=== PATIENT | male | born 1940 | race African-American/Black ===

== ENCOUNTER 2022-03-23 13:22 | Inpatient (IN) | payer OTHER ==
[~2022-03-23] VITALS: Ht 175.3 cm; Wt 55.6 kg
[2022-03-23 15:48] LABS: HEMATOCRIT. 38.3 % (42.0-52.0); MEAN CORPUSCULAR HEMOGLOBIN 29.9 pg (28.0-32.0); MEAN CORPUSCULAR VOLUME 88.1 fL (80.0-94.0); MEAN PLATELET VOLUME 8.4 fl (7.4-10.4); PLATELET 114 x1000/uL (130-400); RED BLOOD CELL COUNT 4.34 mill/uL (4.7-6.1); RED CELL DISTRIBUTION WIDTH 14.1 % (11.6-14.6)
[2022-03-23 15:53] LABS: CHLORIDE 98 mEq/L (98-107)
[2022-03-23 18:20] LABS: PLATELET ESTIMATE DECREASED
[2022-03-23] MEDS ORDERED: ONDANSETRON HCL 4MG/2ML INJ IV PRN (20:45)
[2022-03-23] MEDS ORDERED: MAGNESIUM/ALUMINUM HYDROXIDE/SIMETHICONE 30ML UDC PO PRN (20:45)
[2022-03-23] MEDS ORDERED: ZOLPIDEM TARTRATE 5MG TABLET PO PRN (20:45)
[2022-03-23] MEDS ORDERED: DIPHENHYDRAMINE 50MG/ML VIAL IV PRN (20:45)
[2022-03-23] MEDS ORDERED: CLONIDINE 0.1MG TABLET PO PRN (20:45)
[2022-03-23] MEDS ORDERED: ACETAMINOPHEN 325MG TABLET PO PRN ×2 (20:45)
[2022-03-23] MEDS: SODIUM CHLORIDE 0.9% INJ 3ML FLUSH IVF SCH (22:00)
[2022-03-23 23:43] VITALS: BP 106/53
[2022-03-24] VITALS (10 sets, daily range): BP systolic 96–137; BP diastolic 51–73
[2022-03-24] MEDS: SODIUM CHLORIDE 0.9% INJ 3ML FLUSH IVF SCH ×3 (05:57→21:08)
[2022-03-24] MEDS: TAMSULOSIN HCL 0.4MG SR CAPSULE PO SCH (08:44)
[2022-03-24 12:41] LABS: *AMPHETAMINES SCREEN URINE NEGATIVE (NEGATIVE); *BARBITURATES SCREEN URINE NEGATIVE (NEGATIVE); *BENZODIAZEPINES SCREEN URINE NEGATIVE (NEGATIVE); *COCAINE SCREEN URINE NEGATIVE (NEGATIVE); CANNABINOID URINE SCREEN PRESUMTIVE POSITIVE (NEGATIVE); METHADONE URINE SCREEN NEGATIVE (NEGATIVE); OPIATES URINE SCREEN NEGATIVE (NEGATIVE); PHENCYCLIDINE URINE SCREEN NEGATIVE (NEGATIVE)
[2022-03-24 16:01] LABS: INR 1.2; PROTHROMBIN TIME 12.4 sec (9.6-11.0)
[2022-03-24] MEDS: ENOXAPARIN 60MG/0.6ML SYR SUBCUT SCH (17:28)
[2022-03-24] MEDS ORDERED: ENOXAPARIN 30MG/0.3ML SYR SUBCUT SCH (21:00)
[2022-03-25] VITALS (11 sets, daily range): BP systolic 98–128; BP diastolic 25–69
[2022-03-25] MEDS: SODIUM CHLORIDE 0.9% INJ 3ML FLUSH IVF SCH ×3 (06:00→21:49)
[2022-03-25] MEDS: ENOXAPARIN 60MG/0.6ML SYR SUBCUT SCH ×2 (06:03→18:29)
[2022-03-25 06:11] LABS: HEMATOCRIT. 43.5 % (42.0-52.0); HEMOGLOBIN. 14.7 g/dL (14.0-18.0); MEAN CORPUSCULAR HEMOGLOBIN 29.8 pg (28.0-32.0); MEAN CORPUSCULAR VOLUME 88.2 fL (80.0-94.0); MEAN PLATELET VOLUME 8.1 fl (7.4-10.4); PLATELET 127 x1000/uL (130-400); RED BLOOD CELL COUNT 4.94 mill/uL (4.7-6.1); RED CELL DISTRIBUTION WIDTH 14.1 % (11.6-14.6)
[2022-03-25 08:27] LABS: CHLORIDE 99 mEq/L (98-107)
[2022-03-25] MEDS: TAMSULOSIN HCL 0.4MG SR CAPSULE PO SCH (08:36)
[2022-03-25] MEDS ORDERED: APIX2.5T MT (11:53)
[2022-03-25 12:45] LABS: PLATELET ESTIMATE NORMAL
[2022-03-25 13:48] LABS: T4 FREE 1.64 ng/dL (0.76-1.46)
[2022-03-26] VITALS: BP 100/59
[2022-03-26 04:00] VITALS: BP 100/57
[2022-03-26] MEDS: ENOXAPARIN 60MG/0.6ML SYR SUBCUT SCH ×2 (06:22→17:36)
[2022-03-26] MEDS: SODIUM CHLORIDE 0.9% INJ 3ML FLUSH IVF SCH ×3 (06:23→22:00)
[2022-03-26 08:00] VITALS: BP 112/71
[2022-03-26] MEDS: TAMSULOSIN HCL 0.4MG SR CAPSULE PO SCH (08:22)
[2022-03-26 12:00] VITALS: BP 116/56
[2022-03-26 16:00] VITALS: BP 115/71
[2022-03-26 20:00] VITALS: BP 121/66
[2022-03-27] VITALS (20 sets, daily range): BP systolic 85–114; BP diastolic 37–67
[2022-03-27] MEDS: SODIUM CHLORIDE 0.9% INJ 3ML FLUSH IVF SCH ×3 (05:47→22:31)
[2022-03-27] MEDS: TAMSULOSIN HCL 0.4MG SR CAPSULE PO SCH (09:00)
[2022-03-27 12:08] LABS: HEMATOCRIT. 44.2 % (42.0-52.0); HEMOGLOBIN. 14.9 g/dL (14.0-18.0); MEAN CORPUSCULAR HEMOGLOBIN 29.8 pg (28.0-32.0); MEAN CORPUSCULAR VOLUME 88.9 fL (80.0-94.0); MEAN PLATELET VOLUME 8.5 fl (7.4-10.4); PLATELET 128 x1000/uL (130-400); RED BLOOD CELL COUNT 4.98 mill/uL (4.7-6.1)
[2022-03-27] MEDS ORDERED: IODIXANOL 320MG/ML 100 ML BOTTLE IV ONE (12:25)
[2022-03-27] MEDS ORDERED: ASPIRIN/SOD BICARB/CITRIC ACID 324MG TAB EFF ONE (12:26)
[2022-03-27] MEDS ORDERED: LIDOCAINE HCL/PF 1% 10 MG/ML 5ML VIAL ONE (12:26)
[2022-03-27 13:18] LABS: PLATELET ESTIMATE SLIGHTLY DECREASED
[2022-03-27] MEDS ORDERED: FENTANYL CITRATE/PF 50MCG/ML 2ML VIAL ONE (13:19)
[2022-03-27] MEDS ORDERED: HEPARIN 1000 UNITS/ML 10ML ONE (13:19)
[2022-03-27] MEDS ORDERED: MIDAZOLAM HCL 2 MG/2 ML VIAL ONE (13:20)
[2022-03-27 13:57] LABS: CHLORIDE 104 mEq/L (98-107)
[2022-03-27] MEDS ORDERED: ONDANSETRON HCL 4MG/2ML INJ IV PRN (14:00)
[2022-03-27] MEDS ORDERED: ATROPINE SULFATE 1MG/10ML SYR IV PRN (14:00)
[2022-03-27] MEDS ORDERED: MORPHINE SULFATE 2 MG/ML CPJ (NOT FOR IM USE) IV PRN (14:00)
[2022-03-27] MEDS ORDERED: ACETAMINOPHEN 325MG TABLET PO PRN (14:00)
[2022-03-27] MEDS ORDERED: SODIUM CHLORIDE 0.45% 500 ML IV ONE (14:30)
[2022-03-28] VITALS (15 sets, daily range): BP systolic 91–147; BP diastolic 35–76
[2022-03-28 06:02] LABS: HEMATOCRIT. 41.9 % (42.0-52.0); HEMOGLOBIN. 14.1 g/dL (14.0-18.0); MEAN CORPUSCULAR HEMOGLOBIN 29.7 pg (28.0-32.0); MEAN CORPUSCULAR VOLUME 88.4 fL (80.0-94.0); MEAN PLATELET VOLUME 8.1 fl (7.4-10.4); PLATELET 132 x1000/uL (130-400); RED BLOOD CELL COUNT 4.75 mill/uL (4.7-6.1); RED CELL DISTRIBUTION WIDTH 13.9 % (11.6-14.6)
[2022-03-28] MEDS: SODIUM CHLORIDE 0.9% INJ 3ML FLUSH IVF SCH ×3 (06:15→22:34)
[2022-03-28 07:35] LABS: PLATELET ESTIMATE NORMAL
[2022-03-28] MEDS ORDERED: GENTAMICIN SULF 40MG/ML 2ML VIAL ONE (07:52)
[2022-03-28] MEDS ORDERED: IODIXANOL 320MG/ML 100 ML BOTTLE IV ONE (07:54)
[2022-03-28] MEDS ORDERED: LIDOCAINE HCL 1% 20ML VIAL (Pyxis) INJ ONE (08:03)
[2022-03-28] MEDS ORDERED: MIDAZOLAM HCL 2 MG/2 ML VIAL ONE (08:31)
[2022-03-28] MEDS ORDERED: PROPOFOL 200MG/20ML VIAL IV ONE (08:37)
[2022-03-28] MEDS ORDERED: DEXAMETHASONE 4MG/ML 1ML VIAL ONE (08:58)
[2022-03-28] MEDS ORDERED: FENTANYL CITRATE/PF 50MCG/ML 2ML VIAL ONE (08:58)
[2022-03-28] MEDS ORDERED: ONDANSETRON HCL 4MG/2ML INJ ONE (08:58)
[2022-03-28] MEDS ORDERED: SUCCINYLCHOLINE CHLORIDE 200MG/10ML IV ONE (08:59)
[2022-03-28] MEDS ORDERED: HYDROCODONE/ACETAMINOPHEN 5/325MG TABLET PO PRN (10:00)
[2022-03-28 10:51] LABS: CHLORIDE 102 mEq/L (98-107)
[2022-03-28] MEDS: TAMSULOSIN HCL 0.4MG SR CAPSULE PO SCH (11:58)
[2022-03-28] MEDS: APIXABAN 2.5 MG TABLET PO SCH (17:42)
[2022-03-28] MEDS: CEFAZOLIN 1000MG PREMIX 50 ML IV SCH (17:43)
[2022-03-29] VITALS: BP 105/62
[2022-03-29] MEDS: CEFAZOLIN 1000MG PREMIX 50 ML IV SCH (01:51)
[2022-03-29 04:00] VITALS: BP 104/59
[2022-03-29] MEDS: SODIUM CHLORIDE 0.9% INJ 3ML FLUSH IVF SCH (06:39)
[2022-03-29 07:41] LABS: BASOPHILS % 0.5 % (0.0-2.0); EOSINOPHILS % 0.3 % (0.0-5.0); HEMATOCRIT. 39.9 % (42.0-52.0); HEMOGLOBIN. 13.4 g/dL (14.0-18.0); MEAN CORPUSCULAR HEMOGLOBIN 29.6 pg (28.0-32.0); MEAN CORPUSCULAR VOLUME 87.8 fL (80.0-94.0); MEAN PLATELET VOLUME 7.9 fl (7.4-10.4); MONOCYTES % 13.9 % (2.0-8.0); NEUTROPHILS % 72.3 % (40.0-76.0); PLATELET 124 x1000/uL (130-400); RED BLOOD CELL COUNT 4.54 mill/uL (4.7-6.1); RED CELL DISTRIBUTION WIDTH 13.8 % (11.6-14.6)
[2022-03-29 08:00] VITALS: BP 99/56
[2022-03-29 09:03] LABS: CHLORIDE 101 mEq/L (98-107)
[2022-03-29] MEDS: TAMSULOSIN HCL 0.4MG SR CAPSULE PO SCH (09:55)
[2022-03-29] MEDS: APIXABAN 2.5 MG TABLET PO SCH (09:56)
[2022-03-29 11:36] VITALS: BP 98/60
[2022-03-29 12:00] VITALS: BP 105/58
[2022-03-29] MEDS ORDERED: NALOXONE HCL 0.4MG/ML VIAL IV PRN (15:45)
== END 2022-03-29 14:20 | disposition home health service (06) | DRG 224 ==
LOC: ER 14:21 → EDBEDREQ 17:42 → 3WST 18:22 → EDBEDREQ 18:23 → ENRESERV 18:27 → 3WST 03-26 08:45
PROVIDERS: ADMIT Internal Medicine; ATTEND Internal Medicine
PROC: 4A023N7 Measurement of Cardiac Sampling and Pressure, Left Heart, Percutaneous Approach (ICD-10-PCS; principal; 2022-03-27)
PROC: B2111ZZ Fluoroscopy of Multiple Coronary Arteries using Low Osmolar Contrast (ICD-10-PCS; 2022-03-27)
PROC: B2151ZZ Fluoroscopy of Left Heart using Low Osmolar Contrast (ICD-10-PCS; 2022-03-27)
PROC: 0JH608Z Insertion of Defibrillator Generator into Chest Subcutaneous Tissue and Fascia, Open Approach (ICD-10-PCS; 2022-03-28)
PROC: 02H63KZ Insertion of Defibrillator Lead into Right Atrium, Percutaneous Approach (ICD-10-PCS; 2022-03-28)
PROC: 02HK3KZ Insertion of Defibrillator Lead into Right Ventricle, Percutaneous Approach (ICD-10-PCS; 2022-03-28)
PROC: B5171ZZ Fluoroscopy of Left Subclavian Vein using Low Osmolar Contrast (ICD-10-PCS; 2022-03-28)
DX: I49.5 Sick sinus syndrome (principal); I50.23 Acute on chronic systolic (congestive) heart failure; I48.92 Unspecified atrial flutter; I42.0 Dilated cardiomyopathy; I49.9 Cardiac arrhythmia, unspecified; D69.6 Thrombocytopenia, unspecified; D72.819 Decreased white blood cell count, unspecified; G90.8 Other disorders of autonomic nervous system; Z20.822 Contact with and (suspected) exposure to COVID-19; I25.10 Atherosclerotic heart disease of native coronary artery without angina pectoris; I48.91 Unspecified atrial fibrillation; I11.0 Hypertensive heart disease with heart failure; I95.9 Hypotension, unspecified; Z82.49 Family history of ischemic heart disease and other diseases of the circulatory system; Z95.810 Presence of automatic (implantable) cardiac defibrillator; Z85.46 Personal history of malignant neoplasm of prostate; I25.2 Old myocardial infarction; Z86.73 Personal history of transient ischemic attack (TIA), and cerebral infarction without residual deficits; Z87.891 Personal history of nicotine dependence
CPT/HCPCS: 33249; 36415; 71045; 75820; 80048; 80053; 80305; 83735; 83880; 84153; 84439; 84443; 84481; 84484; 85025; 85379; 87426; 93005; 93306; 93458; 93640; 93880; 93970; 99285; C1721; C1769; C1893; C1898; C1899; J0330; J0690; J1100; J1580; J1644; J1650; J2250; J2270; J2405; J2704; J3010; J3490; Q9967; G0103